=== PATIENT | female | born 1965 | race Caucasian/White ===

== ENCOUNTER 2019-10-15 11:40 | Emergency (ER) | payer OTHER ==
[~2019-10-15] VITALS: Ht 162.6 cm; Wt 95.6 kg
--- NOTE | 2019-10-15 12:35 | REP ---
Chest x-ray: Two views. History: Persistent cough. Shortness of breath . Comparison study: No comparison study . Findings: The lungs are well inflated and free of infiltrate. The pleural angles are sharp. The heart size is normal. Pulmonary vasculature is not increased. No significant bony abnormality is seen. There are degenerative changes in the thoracic spine. Impression: Negative chest x-ray. Electronically Signed by Kyle Leon MD 10/15/2019 12:26 P
[2019-10-15] MEDS ORDERED: BENZONATATE 100 MG CAP PO ONE (12:45)
[2019-10-15] MEDS ORDERED: ALBUTEROL SULFATE 2.5 MG/0.5 ML INH NEB SOLN NEB ONE ×2 (12:45→14:00)
[2019-10-15 13:31] LABS: INFLUENZA A AMPLIFICATION NEGATIVE (NEGATIVE); INFLUENZA B AMPLIFICATION NEGATIVE (NEGATIVE)
[2019-10-15] MEDS ORDERED: ALBU83IN NEB (13:49)
[2019-10-15] MEDS ORDERED: TESS100C PO (13:49)
[2019-10-15] MEDS ORDERED: PROAAER10 INH (13:49)
[2019-10-15] MEDS ORDERED: AZIT-12 PO (13:50)
[2019-10-15 13:51] VITALS: BP 138/80
[2019-10-15] MEDS ORDERED: MEDR4PAK PO (14:39)
== END 2019-10-15 14:44 | disposition home or self-care (01) ==
LOC: M ED 11:40
DX: J20.9 Acute bronchitis, unspecified (principal); J00 Acute nasopharyngitis [common cold]; I10 Essential (primary) hypertension; E05.00 Thyrotoxicosis with diffuse goiter without thyrotoxic crisis or storm; Z88.0 Allergy status to penicillin; Z88.8 Allergy status to other drugs, medicaments and biological substances

== ENCOUNTER 2019-10-24 16:39 | Emergency (ER) | payer OTHER ==
[~2019-10-24] VITALS: Ht 162.6 cm; Wt 97.8 kg
[~2019-10-24 16:39] MED LIST: ALBU83IN NEB; AZIT-12 PO; MEDR4PAK PO; PROAAER10 INH; TESS100C PO
[2019-10-24] MEDS ORDERED: EFFE150C2 PO (16:56)
[2019-10-24] MEDS ORDERED: PROTPAK PO (16:56)
[2019-10-24] MEDS ORDERED: SYNT137T7 PO (16:56)
[2019-10-24] MEDS ORDERED: metoprolol PO (16:56)
[2019-10-24] MEDS ORDERED: BENZONATATE 100 MG CAP PO ONE (17:45)
[2019-10-24] MEDS ORDERED: IPRATROPIUM 0.5MG/ALBUTEROL 2.5MG INH SOL UD 3ML (DUONEB)(J7620) NEB ONE (17:45)
--- NOTE | 2019-10-24 18:11 | REP ---
Chest x-ray: Two views. History: Cough and wheezing. Comparison study: October 15, 2019. Findings: The lungs are well inflated and clear. The pleural angles are sharp. Heart is not enlarged. There are degenerative changes in the thoracic spine. The aorta is somewhat tortuous. No significant bony abnormality is seen. Impression: No active disease. Electronically Signed by Kyle Leon MD 10/24/2019 06:02 P
[2019-10-24 18:30] LABS: INFLUENZA A AMPLIFICATION NEGATIVE (NEGATIVE); INFLUENZA B AMPLIFICATION NEGATIVE (NEGATIVE)
[2019-10-24] MEDS ORDERED: TESS100C PO (18:51)
[2019-10-24] MEDS ORDERED: GUAI1SOL7 PO (18:51)
[2019-10-24 19:05] VITALS: BP 162/94
[2019-10-24] MEDS ORDERED: ADVA115A INH (19:19)
== END 2019-10-24 19:34 | disposition home or self-care (01) ==
LOC: M ED 16:39
DX: J06.9 Acute upper respiratory infection, unspecified (principal); B34.9 Viral infection, unspecified; R05 Cough; R06.02 Shortness of breath; R06.2 Wheezing; I10 Essential (primary) hypertension; E03.9 Hypothyroidism, unspecified; Z86.73 Personal history of transient ischemic attack (TIA), and cerebral infarction without residual deficits; Z79.899 Other long term (current) drug therapy; Z88.0 Allergy status to penicillin; Z88.8 Allergy status to other drugs, medicaments and biological substances